=== PATIENT | female | born 1995 | race Caucasian/White ===

== ENCOUNTER 2016-09-19 13:48 | Emergency (ER) | payer OTHER ==
[~2016-09-19] VITALS: Ht 152.4 cm; Wt 51.6 kg
[2016-09-19 13:50] VITALS: Ht 152.4 cm; Wt 51.6 kg
[2016-09-19] MEDS ORDERED: NO ROUTINE MEDS (14:11)
[2016-09-19] MEDS ORDERED: LIDOCAINE 1% (10mg/ml) 30ml SDV SQ ONE (14:30)
--- NOTE | 2016-09-19 14:33 | NUR ---
DR DR ANDRADE AT BEDSIDE TO SUTURE.
--- NOTE | 2016-09-19 14:51 | ERPDOC ---
Departure Disposition Decision Date: Sep 19, 2016 Disposition Decision Time: 14:49 Disposition: 01 DISCHARGED HOME, SELF-CARE Impression Impression Impression: Primary Impression: Laceration Severity: Mild Condition: Improved Seen By: Physician only Referrals: [facility] 2 Days Patient Instructions: Laceration (ED) Problems/Meds/Labs Reviewed?: Yes Medications reviewed and manag: Yes Follow up care ordered?: Yes Mental Status: Alert, Oriented Scripts Cephalexin (Keflex) 500 Mg Capsule 1 CAP PO TID for 10 Days, #30 CAP 0 Refills Prov: FRANCISCO JAVIER ANDRADE DO 09/19/16 HPI - Skin General General Chief Complaint: Laceration Stated Complaint: L ARM INJURY Time Seen by Provider: 13:51 Source: patient Exam Limitations: no limitations HPI - Skin General Initial Comments 21-year-old female presents to the emergency department with a chief complaint of a laceration to her left forearm. Patient was at work immediately prior to arrival to the emergency department when she accidentally came into contact with a sabra which caused a small laceration to the left forearm. Patient denies any pain or discomfort other than some mild dull local discomfort at the site of laceration. No radiation. Bleeding was stopped with direct pressure. Patient's tetanus status is current. Symptoms have improved since onset. Patient denies any other complaints or associated symptoms. She was at work when the incident occurred. Allergies: Coded Allergies: No Known Allergies (Unverified , 09/19/16) Past History Past Medical History Pt denies signifigant [facility] Surgical History Denies Surgeries Family History Family History: Negative Social History Smoking Status: Never smoker Substance Use Type: does not use Alcohol Intake: none Review of Systems Constitutional Constitutional: DENIES: chills, fever Eyes General: DENIES: erythema, exudate Lids/Accessories: DENIES: erythema, swelling Vision: DENIES: acuity, blurring ENMT Ears: DENIES: drainage, erythema Hearing: DENIES: hearing loss Balance: DENIES: ataxia, falling to one side Sinuses: DENIES: congestion, pain Nose: DENIES: nosebleeds, pain Mouth/Throat: DENIES: painful swallowing, sore throat Teeth: DENIES: pain Jaw: DENIES: pain Cardiovascular Cardiac: DENIES: chest pain, dyspnea on exertion Rhythm/Rate: DENIES: irregular beat, palpitations Vascular: DENIES: pedal edema, unilateral swelling Pulmonary Respiratory: DENIES: cough, dyspnea GI Upper Abdomen: DENIES: nausea, pain, vomiting Lower Abdomen: DENIES: diarrhea, pain General: DENIES: dysuria, frequency Musculoskeletal General: DENIES: joint pain, pain, tenderness Integumentary Skin: DENIES: itching, rash Neurological General: DENIES: headache, numbness, weakness Psychiatric Psychiatric: DENIES: emotional instability, suicidal ideation/attempt Endocrine Endocrine: DENIES: polydipsia, polyphagia Hematologic/Lymphatic Hematologic/Lymphatic: DENIES: frequent nosebleeds, lymphadenopathy Allergic/Immunological Allergic/Immunoligical: DENIES: allergic reactions, hives Physical Exam General General Nourishment: well nourished, well developed, appears stated age, no acute distress, adult General Body Habitus: well groomed Vitals and Pain First Documented Vital Signs Date Time Temp Pulse Resp B/P Pulse Ox O2 Delivery O2 Flow Rate FiO2 09/19/16 13:50 98.3 71 16 119/73 100 Room Air Weight: Kilograms: 51.600 Height (feet): 5 Height (inches): 0 Triage Pain Scale: RN VS reviewed by Provider: Yes Normal Exams: Head: Normocephalic w/o trauma Eyes: Pupils are PERRLA w/ EOMI, No scleral icterus, irritation, or foreign bodies noted ENMT: No facial trauma, nasal exudates, pharyngeal erythema, or exudates are noted Dental: No fractured, loose, or missing teeth noted Neck: Full range of motion, without adenopathy, JVD, bruits or thyromegaly Chest/Resp: Clear all garcia, with good airflow, and symmetry bilaterally CV: Regular rate and rhythm, without murmur or gallop, Pulses 2+ all extremities, capillary refill, <2 seconds all ext., no pedal edema noted Abdomen: Bowel sounds positive, soft, non-tender, non-distended, no hepatosplenomegaly, masses or bruits noted Lymphatic: No lymphadenopathy, or lymphedema noted Musculoskeletal: No tenderness, or deformity noted, good range of motion, all extremities Integumentary: No rashes, hives, or bruising noted, hair and nails Neurologic: Patient is alert, and oriented, cranial nerves, motor/sensory/ cerebellar, exams w/o gross deficits, to observation Psychiatric: Patient exhibits, appropriate attention, emotion and affect Integumentary (brief) Comments 2.5 cm laceration to the left forearm. Superficial. Linear. Clean. Distal neurovascular intact. No foreign body. No tendon involvement. No active bleeding. Differential Diagnoses Considering: Abrasion, Abscess, Laceration, Puncture Procedures Laceration/Wound Repair Wound/Laceration Repair : Wound Location: upper extremity Wound Length (cm): 2.5 Depth, Shape: superficial Explored: clean Irrigated: saline Type of Block: local Repaired With: Sutures Suture Size: 4:0 Suture Type: ethilon Sterile Dressing Applied?: Yes Progress Results/Orders Orders Procedure Category Date Status Time Lidocaine 1% PHA 09/19/16 Complete (Xylocaine 1%) 14:30 Medications Current ED Medications Lidocaine HCl (Xylocaine 1%) 100 mg O ONCE SQ Last administered on 09/19/16t 14 :32; Start 09/19/16 at 14:30; Stop 09/19/16 at 14:31; Status DC Progress Progress Patient's tetanus status is current. Wound was irrigated copiously and closed with good approximation by myself. Patient tolerated procedure well without difficulty. Sutures are to remain in place for 7-10 days. Prescription for Keflex is provided. Patient is to follow-up for a wound check in 2 days. She is in agreement with the current plan of management. She is to return to the emergency Department if her condition worsens or changes in any manner. Patient is discharged home in improved condition. She was counseled in detail regarding the probability of scarring and verbalizes agreement and understanding. FRANCISCO JAVIER ANDRADE DO Sep 19, 2016 14:51
[2016-09-19] MEDS ORDERED: CEPH-583 PO (15:01)
--- NOTE | 2016-09-19 15:05 | NUR ---
DRESSING TELFA AND COBAN PLACED TO LEFT ARM
[2016-09-19 15:10] VITALS: BP 121/71; PULSE 74; RESP 16; TEMP 98.3; O2SAT 99
--- NOTE | 2016-09-19 15:10 | NUR ---
DISMISSAL DISMISSAL INSTRUCTIONS WITH RX X1. NO FURTHER QUESTIONS AT THIS TIME. PT LEFT DEPARTMENT [employer]BU[employer] IN NO DISTRESS WITH EMPLOYER
== END 2016-09-19 15:10 | disposition home or self-care (01) ==
LOC: EDSEX 13:48 → ED 13:48
DX: S51.812A Laceration without foreign body of left forearm, initial encounter (principal); W29.8XXA Contact with other powered hand tools and household machinery, initial encounter; Y93.9 Activity, unspecified; Y92.9 Unspecified place or not applicable; Y99.0 Civilian activity done for income or pay